=== PATIENT | female | born 1965 | race Caucasian/White ===

== ENCOUNTER → 2025-04-14 10:08 | Outpatient (REF) | payer BC, SELFPAY | LOC: EMG 10:08 | PROVIDERS: ATTENDING PHYSICIAN Nurse Practitioner Family | DX: R20.0 Anesthesia of skin (principal); R20.2 Paresthesia of skin | CPT/HCPCS: 95886; 95909 ==

== ENCOUNTER → 2025-10-06 08:15 | Outpatient (REF) | payer BC, SELFPAY | LOC: HWRCS 08:15 | PROVIDERS: ATTENDING PHYSICIAN Internal Medicine Cardiovascular Disease; FAMILY PHYSICIAN Family Medicine | DX: R00.2 Palpitations (principal) | CPT/HCPCS: 93306 ==